=== PATIENT | female | born 2000 | race Hispanic/Latino ===

== ENCOUNTER 2022-06-06 18:08 | Emergency (ER) | payer SELFPAY ==
[2022-06-06 18:48] LABS: #Eosinphils 0.1 thou/uL (0.0-0.7); #Lymphocytes 2.2 thou/uL (1.20-3.40); #Monocytes 0.6 thou/uL (0.11-0.59); #Neutrophils 6.2 thou/uL (1.40-6.50); %Basophils 0.4 % (0.0-1.0); %Eosinophils 1.2 % (0.0-10.0); %Lymphocytes 24.2 % (28.0-48.0); %Monocytes 6.9 % (0.0-4.0); %Neutrophils 67.3 % (31.0-61.0); Hemoglobin 12.5 g/dL (12.0-16.0); Mean Corpuscular HGB CONC 33.2 g/dL (32.0-36.0); Mean Corpuscular Hemoglobin 30.5 pg (25.0-35.0); Mean Platelet Volume 8.2 fL (7.4-10.4); Platelet Count 291 thou/uL (130-400); RBC Distribution Width 13.4 % (11.5-14.5); White Blood Cell (WBC) Count 9.2 thou/uL (4.8-10.8)
[2022-06-06 19:05] LABS: BHCG - Serum POSITIVE (NEGATIVE); Pregs Control Background? CLEAR/WHITE (CLR/WHITE); Pregs Control Bar Appear? YES (CONTROL BAR)
[2022-06-06 19:13] LABS: ALT (SGPT) 12 U/L (8-55); AST (SGOT) 8 U/L (5-34); Alkaline Phosphatase 74 U/L (40-100); Anion Gap 10 mmol/L (10-20); BUN (Urea Nitrogen) 7 mg/dL (7.0-18.7); Bilirubin, Total 0.2 mg/dL (0.2-1.2); Calc. Creatinine Clearance 0 mL/min (70-130); Calcium 9.5 mg/dL (7.8-10.44); Carbon Dioxide 26 mmol/L (22-29); Chloride 104 mmol/L (98-107); Estimated GFR 130; Globulin 3.2 g/dL (2.4-3.5); Glucose 94 mg/dL (70-105); Potassium 3.8 mmol/L (3.5-5.1); Protein, Total 7.2 g/dL (6.0-8.3); Sodium 136 mmol/L (136-145)
== END 2022-06-06 20:18 | disposition home or self-care (01) ==
LOC: ERS 18:08
DX: O99.891 Other specified diseases and conditions complicating pregnancy (principal); R10.30 Lower abdominal pain, unspecified; F17.290 Nicotine dependence, other tobacco product, uncomplicated
CPT/HCPCS: 36415; 76856; 80053; 84702; 84703; 85025; 86900; 86901

== ENCOUNTER 2022-06-08 18:42 | Emergency (ER) | payer SELFPAY | END 2022-06-08 19:17 | disposition left against medical advice (07) | LOC: ERS 18:42 | DX: Z53.21 Procedure and treatment not carried out due to patient leaving prior to being seen by health care provider (principal) ==

== ENCOUNTER 2022-06-09 08:06 | Emergency (ER) | payer OTHER, SELFPAY ==
[2022-06-09 10:18] LABS: Bacteria/HPF 1+ HPF (None Seen); Bilirubin Negative (Negative); Blood, Urine Negative (Negative); Clarity Turbid (Clear); Glucose, Urine (Dipstick) Normal (Negative); Ketone, Urine Negative (Negative); Leukocyte 75 Leu/uL (Negative); Nitrite 2+ (Negative); Protein, Urine (Dipstick) 10 mg/dL (Neg-Trace); RBC/HPF 0-3 HPF (0-3); Specific Gravity, Urine 1.026 (1.002-1.036); Urobilinogen Normal mg/dL (Less than 2); WBC/HPF 0-3 HPF (0-3); pH, Urine 6.5 (5.0-9.0)
[2022-06-09 17:34] LABS: Chlamydia by PCR Not Detected (NotDetected); GC by PCR Not Detected (NotDetected)
== END 2022-06-09 11:50 | disposition home or self-care (01) ==
LOC: ERS 08:06
DX: O23.41 Unspecified infection of urinary tract in pregnancy, first trimester (principal); N39.0 Urinary tract infection, site not specified; Z87.891 Personal history of nicotine dependence; Z3A.01 Less than 8 weeks gestation of pregnancy
CPT/HCPCS: 36415; 76856; 81003; 81015; 84702; 87480; 87491; 87510; 87591; 87660

== ENCOUNTER 2023-06-27 15:20 | Outpatient (CLI) | payer OTHER | END 2023-06-27 15:21 | disposition home or self-care (01) | LOC: BICULT 15:20 | PROVIDERS: ATTEND Family Medicine | DX: Z34.82 Encounter for supervision of other normal pregnancy, second trimester (principal); Z3A.20 20 weeks gestation of pregnancy | CPT/HCPCS: 76805 ==

== ENCOUNTER 2023-09-21 09:27 | Emergency (ER) | payer OTHER | END 2023-09-21 12:29 | disposition home or self-care (01) | LOC: ERS 09:27 | DX: O26.893 Other specified pregnancy related conditions, third trimester (principal); Z3A.32 32 weeks gestation of pregnancy | CPT/HCPCS: 76815 ==

== ENCOUNTER 2024-10-31 20:25 | Emergency (ER) | payer OTHER ==
[2024-10-31 20:54] LABS: #Basophils 0.05 10x3/uL (0.0-0.2); %Basophils 0.6 % (0.0-1.0); %Eosinophils 2.5 % (0.0-10.0); %Lymphocytes 32.4 % (21.0-51.0); %Monocytes 7.4 % (0.0-10.0); %Neutrophils 56.8 % (42.0-75.0); Hematocrit 36.1 % (36.0-47.0); Hemoglobin 11.9 g/dL (12.0-16.0); Mean Corpuscular Hemoglobin 29.2 pg (27.0-31.0); Mean Corpuscular Volume 88.5 fL (78.0-98.0); Mean Platelet Volume 10.6 fL (7.4-10.4); Platelet Count 324 10x3/uL (130-400); RBC Distribution Width 14.1 % (11.5-14.5); Red Blood Cell (RBC) Count 4.08 mill/uL (4.20-5.40)
[2024-10-31 21:08] LABS: Bacteria/HPF None Seen HPF (None Seen); CAUTI Indications for Culture Acute Hematuria; RBC/HPF Greater than 50 HPF (0-3)
[2024-10-31 21:09] LABS: ALT (SGPT) 21 U/L (8-55); AST (SGOT) 12 U/L (5-34); Albumin 3.5 g/dL (3.5-5.0); Alkaline Phosphatase 83 U/L (40-110); Anion Gap 12 mmol/L (10-20); BUN (Urea Nitrogen) 10 mg/dL (7.0-18.7); Bilirubin, Total 0.2 mg/dL (0.2-1.2); Calc. Creatinine Clearance 0 mL/min (70-130); Calcium 8.6 mg/dL (7.8-10.44); Carbon Dioxide 21 mmol/L (22-29); Chloride 109 mmol/L (98-107); Estimated GFR 133; Globulin 3.6 g/dL (2.4-3.5); Glucose 104 mg/dL (70-105); Lipase 14 U/L (8-78); Potassium 3.7 mmol/L (3.5-5.1); Protein, Total 7.1 g/dL (6.0-8.3); Sodium 138 mmol/L (136-145)
[2024-10-31 21:10] LABS: Bilirubin Negative (Negative); Blood, Urine 3+ (Negative); Glucose, Urine (Dipstick) Normal (Negative); Ketone, Urine Negative (Negative); Leukocyte Negative Leu/uL (Negative); Nitrite Negative (Negative); Protein, Urine (Dipstick) 100 mg/dL (Neg-Trace); Specific Gravity, Urine 1.031 (1.002-1.036)
[2024-10-31 21:11] LABS: Clarity Cloudy (Clear)
[2024-10-31 21:13] LABS: Urine Culture Reflex Yes Yes
[2024-10-31] MEDS ORDERED: Ondansetron PF 4 MG/2 ML Vial ONE (22:19)
[2024-10-31] MEDS ORDERED: Morphine 4 MG/ML VIAL ONE (22:19)
== END 2024-11-01 01:48 | disposition short-term general hospital (02) ==
LOC: ERS 20:25
DX: O00.90 Unspecified ectopic pregnancy without intrauterine pregnancy (principal); Z55.6 Problems related to health literacy; Z3A.01 Less than 8 weeks gestation of pregnancy
CPT/HCPCS: 36415; 76856; 80053; 81001; 83690; 84702; 85025; 86850; 86900; 86901; 87086; J2272; J2405